=== PATIENT | male | born 1960 | race Caucasian/White ===

== ENCOUNTER → 2018-03-27 | Day surgery (SDC) | payer OTHER ==
[~2018-03-27] VITALS: Ht 167.6 cm; Wt 72.6 kg
[~2018-03-27] MED LIST: PERCOCET 5-3251 EACH PO
--- NOTE | 2018-03-29 11:55 | Operative Report ---
Operative/Inv Procedure Report Surgery Date: 03/27/18 Name of Procedure: LIH repair (BULMARO), Robotic, laparoscopic with mesh Pre-Operative Diagnosis: left inguinoscrotal hernia Post-Operative Diagnosis: same (sigmoid) Estimated Blood Loss: scant Surgeon/Plate Filler: Benjamín FUNK,Jeff NAVA Anesthesia: general endotracheal tube Operative/Procedure Note Note: Patient was positioned supine on the table. After successful induction of general anesthesia, his abdomen was prepped and draped in usual sterile fashion, based on body habitus we aimed our trocar sites to be in the mid-epigastrium, one in the middle and 2 bilateral, local anesthetic was injected in a spot left subcostal laterally, a roughly 1 cm incision was made with a 15 blade and then using a 5 mm optical trocar inserted into the 8 mm robotic trocar, attached to a 5 mm camera and the trocar was advanced through the abdominal wall watching on the screen, as the trocar passes through the layers, alternating colors, yellow fat white fascia red muscle, until the tip just seems to menon the inner thin peritoneal layer. At that point, I stop pushing and check if it's open by turning on the gas. If the belly insufflates then you know you can advance that large trocar into an empty space more directly without injuring the viscera. We were able to advance the trochars safely and into the peritoneum and then the gas was turned on to 15 mm. then using 8 mm trochars we inserted 2 of them, in similar fashion to the abdominal wall under direct vision with the camera one in the mid epigastrium and one in the right lateral abdomen symmetrically placed. Then the Robot was moved to the patient, then docked and targeted. At this point you could see the left inguinal hernia, with adherent incarcerated sigmoid colon in it. We then developed / started the peritoneal flap horizontally at the level of the iliac crest starting laterally to medial to umbilical ligament with cautery and then dissected within the flap the inguinal anatomy. Using mostly blunt dissection with a bipolar fenestrated grasper and a scissors, first Anthony's ligament is swept off medially, checking the medial spaces, direct and femoral. There were no hernias there. Then briefly skipping over the area of the iliac fat pad, we developed the iliopubic tract out laterally to the iliac crest. Then we returned to the area of the fat pad where the hernia sac / colon and cord structures were adherent, coursing up into an attenuated deep ring. There was some preperitoneal fat up inside in front that was dragged down and out, along with the lip of the peritoneal sac down off the cord structures which form a triangle, blood vessels approaching laterally the vas medially with the apex at the deep ring, it was a large sac but we did not put a hole in it. Once the hernia sac is from the cord structures down to the below Anthony's medially at the bladder, and laterally the iliopubic tract below this, a Parietex sided mesh without the keyhole or the suture, is marked and stuffed down the camera trocar, then unfurled in a systematic fashion, to cover both the hernia and the direct spaces and to make sure its tucked below Anthony's ligament and in that crevice Retzius space by the bladder and laterally beneath the iliopubic tract without curling and superiorly towards the camera. There is a seamed part of the mesh, that covers the iliac fat pad like a skirt. The mesh was adjusted back and forth so the edges are not curling. There was some preperitoneal fat that we had brought down that helped hold the mesh down inferiorly so I only needed one tacking suture up superiorly medially I used a 3 -0 Vicryl suture. Then we brought up the peritoneal flap and sewed it shut across with a 2-0 V lock. We then undocked, let rest of the gas escape, pulling out the instruments and trochars. Then we closed the 3 skin incisions with interrupted 4-0 Monocryl followed by Mastisol, Steri-Strips and Band-Aids. Overall estimated blood loss was minimal, lap and sponge counts were correct, wound expectancy was clean, IV fluids crystalloid, complications none, patient tolerated the procedure well, did not significantly gallo during extubation and was returned to the recovery room in satisfactory condition.
== END ==
LOC: STS 01:12
DX: K40.91 Unilateral inguinal hernia, without obstruction or gangrene, recurrent (principal); Z87.891 Personal history of nicotine dependence
CPT/HCPCS: 49651; 64488; S2900; 93005; 93010; C1781; J0690; J1100; J2250; J2405; J2765